=== PATIENT | female | born 1940 | race Caucasian/White ===

== ENCOUNTER 2016-05-25 09:58 | Inpatient (IN) | payer MEDICARE, BC ==
[2016-05-25] VITALS (17 sets, daily range): BP systolic 82–128; BP diastolic 64–88; PULSE 80–150; RESP 12–24; TEMP 97.6–98.2; O2SAT 94–100
[~2016-05-25] VITALS: Ht 165.1 cm; Wt 69.9 kg
[~2016-05-25 09:58] MED LIST: BLOOD PRESSURE MED PO; CHOL1CAP6 PO; ESTR.3 PO; HYCO5UDC PO; LEVO.1 PO; MIAC200S; OYST500T77 PO; PROM25SU8 PO; TAB-TAB PO; VITA400C70 PO; VITA500T10 PO; ZINCLOZ8 PO
[2016-05-25] MEDS ORDERED: SODIUM CHLOR 0.9% 1000 ML INJ 1,000 ML IV ONE ×3 (10:18→15:00)
[2016-05-25] MEDS ORDERED: SODIUM CHLOR 0.9% 1000 ML INJ 100 ML IV ONE (10:18)
--- NOTE | 2016-05-25 10:26 | PD ---
HPI Chief Complaint: GI Complaint Time Seen by Provider: 10:11 Travel History International Travel<30 days: No Contact w/Intl Traveler<30days: No Traveled to known affect area: No History of Present Illness HPI The patient is a 75-year-old female who presents to the emergency department for nausea, diarrhea, and generalized weakness. The patient states her symptoms started several days ago with a runny nose and congestion. The patient then developed mid thoracic back pain that was followed with nausea, diarrhea, and crampy abdominal pain. The patient has 3 episodes of loose stool earlier today, also complains of nausea without any vomiting. The patient complains of generalized weakness with orthostatic dizziness. The patient does feel general lethargy, states she was unable to measure her blood pressure this morning. The patient does have a history of hypertension, however, did not take her blood pressure medications this morning secondary to her symptoms. The patient did receive an influenza vaccination this year. The patient denies any dysuria, frequency, or urgency. His primary physician is Dr. Zuleika Belcher and her knockdown man is Dr. Oneill. [facility] Past Medical History Blood Disorders: No Cancer: No Cardiovascular Problems: No Chemotherapy: No Diminished Hearing: No Endocrine: Yes Genitourinary: No Immune Disorder: No Musculoskeletal: No Neurologic: No Psychiatric: No Respiratory: No Immunizations Current: Yes Radiation Therapy: No Thyroid Disease: Yes (HYPOTHYROID) Menopausal: Yes Past Surgical History Abdominal Surgery: Yes (gallbladder) Appendectomy: Yes Cholecystectomy: Yes Hysterectomy: Yes Other Surgery: Yes Social History Alcohol Use: Yes (1/YEAR) Tobacco Use: No Substance Use: No Allergies-Medications (Allergen,Severity, Reaction): Coded Allergies: No Known Allergies (Unverified , 05/25/16) Reported Meds & Prescriptions Reported Meds & Active Scripts Active Reported Vitamin E 400 Unit Tab 400 Units PO DAILY Ascorbic Acid 1,000 Mg Tab 1,000 Mg PO DAILY Vitamin D-3 (Cholecalciferol) 1,000 Unit Tab 1,000 Units PO DAILY Zinc (Zinc Gluconate) 50 Mg Tab 1 Tab PO DAILY Multivitamin Adults 50+ (Multiple Vitamins W/ Minerals) 1 Tab Tab 1 Tab PO DAILY Calcium 500 Mg Tab 1,000 Mg PO DAILY Diltiazem ER 24 HR (Diltiazem HCl) 120 Mg Caper 120 Mg PO DAILY Metoprolol Tartrate 100 Mg Tab 100 Mg PO DAILY Premarin (Estrogens Conjugated) 0.3 Mg Tab 0.3 Mg PO DAILY Diovan Hct (Valsartan-Hydrochlorothiazide) 80-12.5 Mg Tab 1 Tab PO DAILY Synthroid (Levothyroxine Sodium) 100 Mcg Tab 100 Mcg PO DAILY Aspirin 81 Mg Chew 81 Mg CHEW DAILY Review of Systems Except as stated in HPI: all other systems reviewed are Neg General / Constitutional: No: Fever HENT: Positive: Lightheadedness, Congestion Cardiovascular: Positive: Tachycardia Respiratory: Positive: Cough Gastrointestinal: Positive: Nausea, Diarrhea, Abdominal Pain, No: Vomiting Genitourinary: No: Dysuria Musculoskeletal: Positive: Weakness Neurologic: Positive: Dizziness Physical Exam Narrative GENERAL: Awake, alert, 75-year-old female appears her stated age. SKIN: Warm and dry. HEAD: Atraumatic. Normocephalic. EYES: Pupils equal and round. No scleral icterus. No injection or drainage. ENT: No nasal bleeding or discharge. Dry mucous membranes. NECK: Trachea midline. No JVD. CARDIOVASCULAR: Regular, tachycardic with a heart rate of 150. RESPIRATORY: No accessory muscle use. Clear to auscultation. Breath sounds equal bilaterally. GASTROINTESTINAL: Abdomen soft, mild bilateral lower quadrant tenderness. Back: No CVA tenderness. Mild tenderness of the parathoracic vertebral muscles. MUSCULOSKELETAL: No obvious deformities. No clubbing. No cyanosis. No edema. NEUROLOGICAL: Awake and alert. No obvious cranial nerve deficits. Motor grossly within normal limits. Normal speech. PSYCHIATRIC: Appropriate mood and affect; insight and judgment normal. Data Data Last Documented VS Vital Signs Date Time Temp Pulse Resp B/P Pulse Ox O2 Delivery O2 Flow Rate FiO2 05/25/16 12:03 123 17 99/82 95 Room Air 05/25/16 11:02 97.9 Orders Electrocardiogram (05/25/16 10:18) Complete Blood Count With Diff (05/25/16 10:18) Comprehensive Metabolic Panel (05/25/16 10:18) Lactic Acid Sepsis Protocol (05/25/16 10:18) Lipase (05/25/16 10:18) Ckmb (Isoenzyme) Profile (05/25/16 10:18) Troponin I (05/25/16 10:18) Urinalysis - C+S If Indicated (05/25/16 10:18) Influenzae A/B Antigen (05/25/16 10:18) Blood Culture (05/25/16 10:18) Chest, Single Ap (05/25/16 10:18) Blood Gas Venous (Vbg) (05/25/16 10:18) Blood Glucose (05/25/16 10:18) Ecg Monitoring (05/25/16 10:18) Iv Access Insert/Monitor (05/25/16 10:18) Oximetry (05/25/16 10:18) Oxygen Administration (05/25/16 10:18) Ct Abd/Pel W/O Iv Contrast (05/25/16 10:18) Sodium Chlor 0.9% 1000 Ml Inj (Ns 1000 M (05/25/16 10:18) Sodium Chlor 0.9% 1000 Ml Inj (Ns 1000 M (05/25/16 10:18) Sodium Chlor 0.9% 1000 Ml Inj (Ns 1000 M (05/25/16 10:18) Ondansetron Inj (Zofran Inj) (05/25/16 10:30) Electrocardiogram (05/25/16 ) Admit Order (Ed Use Only) (05/25/16 12:09) Labs Laboratory Tests Test 05/25/16 05/25/16 05/25/16 10:25 10:37 11:15 White Blood Count 7.3 TH/MM3 Red Blood Count 4.47 MIL/MM3 Hemoglobin 14.5 GM/DL Hematocrit 43.9 % Mean Corpuscular Volume 98.2 FL Mean Corpuscular Hemoglobin 32.4 PG Mean Corpuscular Hemoglobin 33.0 % Concent Red Cell Distribution Width 13.6 % Platelet Count 298 TH/MM3 Mean Platelet Volume 10.1 FL Neutrophils (%) (Auto) 61.5 % Lymphocytes (%) (Auto) 22.9 % Monocytes (%) (Auto) 14.1 % Eosinophils (%) (Auto) 0.8 % Basophils (%) (Auto) 0.7 % Neutrophils # (Auto) 4.4 TH/MM3 Lymphocytes # (Auto) 1.7 TH/MM3 Monocytes # (Auto) 1.0 TH/MM3 Eosinophils # (Auto) 0.1 TH/MM3 Basophils # (Auto) 0.1 TH/MM3 CBC Comment DIFF FINAL Differential Comment Sodium Level 143 MEQ/L Potassium Level 3.8 MEQ/L Chloride Level 106 MEQ/L Carbon Dioxide Level 25.6 MEQ/L Anion Gap 11 MEQ/L Blood Urea Nitrogen 13 MG/DL Creatinine 1.10 MG/DL Estimat Glomerular Filtration 48 ML/MIN Rate Random Glucose 120 MG/DL Calcium Level 8.9 MG/DL Total Bilirubin 0.7 MG/DL Aspartate Amino Transf 9 U/L (AST/SGOT) Alanine Aminotransferase 16 U/L (ALT/SGPT) Alkaline Phosphatase 74 U/L Total Creatine Kinase 33 U/L Troponin I LESS THAN 0.02 NG/ML Total Protein 6.8 GM/DL Albumin 3.2 GM/DL Lipase 127 U/L Blood Gas Puncture Site IV Blood Gas Patient Temperature 98.6 Venous Blood pH 7.40 Venous Blood Partial Pressure 42 mmHg CO2 Venous Blood Partial Pressure 32 mmHg O2 Venous Blood HCO3 26 mmol/L Venous Blood Oxygen Saturation 57 % Venous Blood Oxygen Content 11.2 Vol % Venous Blood Base Excess 1.4 mmol/L Oxygen Delivery Device ROOMAIR Blood Gas Inspired Oxygen 21 % Lactic Acid Level 1.3 mmol/L MDM Medical Decision Making Medical Screen Exam Complete: Yes Emergency Medical Condition: Yes Medical Record Reviewed: Yes Interpretation(s) EKG reveals accelerated junctional rhythm versus atrial flutter with 2-[address]-T wave changes. CT the abdomen and pelvis reveals diverticulosis without diverticulitis. Status post cholecystectomy. Right ovarian cyst measures 5 cm. Pelvic sonogram recommended. Laboratory Tests Test 05/25/16 05/25/16 05/25/16 10:25 10:37 11:15 White Blood Count 7.3 TH/MM3 Red Blood Count 4.47 MIL/MM3 Hemoglobin 14.5 GM/DL Hematocrit 43.9 % Mean Corpuscular Volume 98.2 FL Mean Corpuscular Hemoglobin 32.4 PG Mean Corpuscular Hemoglobin 33.0 % Concent Red Cell Distribution Width 13.6 % Platelet Count 298 TH/MM3 Mean Platelet Volume 10.1 FL Neutrophils (%) (Auto) 61.5 % Lymphocytes (%) (Auto) 22.9 % Monocytes (%) (Auto) 14.1 % Eosinophils (%) (Auto) 0.8 % Basophils (%) (Auto) 0.7 % Neutrophils # (Auto) 4.4 TH/MM3 Lymphocytes # (Auto) 1.7 TH/MM3 Monocytes # (Auto) 1.0 TH/MM3 Eosinophils # (Auto) 0.1 TH/MM3 Basophils # (Auto) 0.1 TH/MM3 CBC Comment DIFF FINAL Differential Comment Sodium Level 143 MEQ/L Potassium Level 3.8 MEQ/L Chloride Level 106 MEQ/L Carbon Dioxide Level 25.6 MEQ/L Anion Gap 11 MEQ/L Blood Urea Nitrogen 13 MG/DL Creatinine 1.10 MG/DL Estimat Glomerular Filtration 48 ML/MIN Rate Random Glucose 120 MG/DL Calcium Level 8.9 MG/DL Total Bilirubin 0.7 MG/DL Aspartate Amino Transf 9 U/L (AST/SGOT) Alanine Aminotransferase 16 U/L (ALT/SGPT) Alkaline Phosphatase 74 U/L Total Creatine Kinase 33 U/L Troponin I LESS THAN 0.02 NG/ML Total Protein 6.8 GM/DL Albumin 3.2 GM/DL Lipase 127 U/L Blood Gas Puncture Site IV Blood Gas Patient Temperature 98.6 Venous Blood pH 7.40 Venous Blood Partial Pressure 42 mmHg CO2 Venous Blood Partial Pressure 32 mmHg O2 Venous Blood HCO3 26 mmol/L Venous Blood Oxygen Saturation 57 % Venous Blood Oxygen Content 11.2 Vol % Venous Blood Base Excess 1.4 mmol/L Oxygen Delivery Device ROOMAIR Blood Gas Inspired Oxygen 21 % Lactic Acid Level 1.3 mmol/L EKG #2 reveals probable accelerated junctional rhythm with a rate of 121. Appears regular but no obvious P waves. Differential Diagnosis Differential diagnosis includes sepsis, dehydration, influenza, diverticulitis, colitis, gastroenteritis, electrolyte abnormality, atrial flutter, pneumonia. Narrative Course IV was established, labs are drawn and sent, and the patient was placed on cardiac telemetry monitoring and continuous pulse oximetry monitoring. Chest x- ray was ordered. CT of the abdomen and pelvis was ordered. The patient was administered IV fluids and Zofran. EKG was ordered and interpreted. Lactic acid blood culture were sent to lab. Lactic acid is normal, white count is normal, BUN is unremarkable, creatinine is mildly elevated. CT the abdomen and pelvis is negative for any obvious source of enteritis/colitis. Chest x-rays negative for pneumonia. The patient received 2 L of IV fluids, her heart rate came down to 121, blood pressure improved with a systolic in the high 90s. The patient's symptoms did improve, over, she was still mildly tachycardic and dehydrated. Therefore, patient be 23 hour observation for IV fluid rehydration and monitoring of tachycardia. Therefore, [facility] hour observation. Repeat EKG was performed which reveals accelerated junctional rhythm, appears regular with no obvious P waves. Physician Communication Physician Communication I discussed the patient with Dr. Watkins who agrees with 23 hour observation. Diagnosis Primary Impression: Dehydration Additional Impressions: Gastroenteritis Tachycardia Admitting Information Admitting Physician Requests: Observation Krishan Evans MD May 25, 2016 10:26
[2016-05-25] MEDS ORDERED: CHEL50TA PO (10:30)
[2016-05-25] MEDS ORDERED: ONDANSETRON HCL 4 MG/2 ML VIAL IV PUSH ONE (10:30)
[2016-05-25] MEDS ORDERED: LEVO.1 PO (10:30)
[2016-05-25] MEDS ORDERED: MULT1TAB78 PO (10:30)
[2016-05-25] MEDS ORDERED: VITA10003 PO (10:30)
[2016-05-25] MEDS ORDERED: ASPI81CH CHEW (10:30)
[2016-05-25] MEDS ORDERED: DILT120C7 PO (10:30)
[2016-05-25] MEDS ORDERED: DIOV80TA2 PO (10:30)
[2016-05-25] MEDS ORDERED: METO100T PO (10:30)
[2016-05-25] MEDS ORDERED: ESTR.3 PO (10:30)
[2016-05-25] MEDS ORDERED: CALC500T42 PO (10:30)
[2016-05-25] MEDS ORDERED: NATU400T PO (10:31)
[2016-05-25] MEDS ORDERED: ASCO10003 PO (10:31)
[2016-05-25 10:35] LABS: AUTOMATED NEUTROPHIL # 4.4 TH/MM3 (1.8-7.7); BASOPHIL # 0.1 TH/MM3 (0-0.2); BASOPHIL % 0.7 % (0.0-2.0); EOSINOPHIL # 0.1 TH/MM3 (0-0.4); EOSINOPHIL % 0.8 % (0.0-4.0); HEMATOCRIT 43.9 % (35.0-46.0); HEMO FLAGS DIFF FINAL; LYMPH % 22.9 % (9.0-44.0); LYMPHOCYTE # 1.7 TH/MM3 (1.0-4.8); MEAN CELL VOLUME 98.2 FL (80.0-100.0); MEAN CORPUSCULAR HEMOGLOBIN 32.4 PG (27.0-34.0); MONO % 14.1 % (0.0-8.0); NEUT % 61.5 % (16.0-70.0); PLATELET COUNT 298 TH/MM3 (150-450); RED BLOOD COUNT 4.47 MIL/MM3 (4.00-5.30); RED CELL DISTRIBUTION WIDTH 13.6 % (11.6-17.2); WHITE BLOOD COUNT 7.3 TH/MM3 (4.0-11.0)
[2016-05-25 10:41] LABS: BLOOD GAS VENOUS BASE EXCESS 1.4 mmol/L (-2-2); BLOOD GAS VENOUS HCO3 26 mmol/L (22-26); BLOOD GAS VENOUS O2 CONTENT 11.2 Vol % (9.0-17.0); BLOOD GAS VENOUS O2 HGB SAT 57 % (70-76); BLOOD GAS VENOUS PCO2 42 mmHg (44-48); BLOOD GAS VENOUS PO2 32 mmHg (35-40); CRITICAL VALUE NO; DRAW SITE IV; FIO2 21 %; OXYGEN DEVICE ROOMAIR; STAT YES; TEMP CORR TO 98.6
[2016-05-25 10:45] LABS: CHLORIDE 106 MEQ/L (98-107); POTASSIUM 3.8 MEQ/L (3.5-5.1); SODIUM (NA) 143 MEQ/L (136-145)
[2016-05-25 10:52] LABS: ANION GAP 11 MEQ/L (5-15); BICARBONATE 25.6 MEQ/L (21.0-32.0); BLOOD UREA NITROGEN 13 MG/DL (7-18)
[2016-05-25 10:55] LABS: ALT (GPT) 16 U/L (10-53); AST (GOT) 9 U/L (15-37); GLOMERULAR FILTRATION RATE 48 ML/MIN (>89)
[2016-05-25 10:56] LABS: TOTAL BILIRUBIN ADULT 0.7 MG/DL (0.2-1.0)
[2016-05-25 10:58] LABS: ALKALINE PHOSPHATASE 74 U/L (45-117)
--- NOTE | 2016-05-25 10:59 | RADHPO ---
EXAM DATE/TIME: 05/25/2016 10:47 [facility] COMPARISON: No previous studies available for comparison. INDICATIONS : Cough, nausea. MEDICAL HISTORY : None. SURGICAL HISTORY : None. ENCOUNTER: Initial ACUITY: 1 day PAIN SCORE: 0/10 LOCATION: Bilateral chest FINDINGS: A single view of the chest demonstrates the lungs to be symmetrically aerated without evidence of mas s, infiltrate or effusion. The cardiomediastinal contours are unremarkable. Osseous structures are intact. CONCLUSION: Normal examination. aHrshal Quijano MD on May 25, 2016 at 10:57 Board Certified Radiologist. This report was verified electronically.
[2016-05-25 11:02] LABS: CREATINE KINASE 33 U/L (26-192)
--- NOTE | 2016-05-25 11:48 | RADHPO ---
EXAM DATE/TIME: 05/25/2016 11:18 [facility] COMPARISON: No previous studies available for comparison. INDICATIONS : Non-specific abdominal and back pain with generalized weakness. ORAL CONTRAST: No oral contrast ingested. RADIATION DOSE: 9.21 CTDIvol (mGy) MEDICAL HISTORY : None SURGICAL HISTORY : Cholecystectomy. Hysterectomy. ENCOUNTER: Initial ACUITY: 1 day PAIN SCALE: 6/10 LOCATION: abdomen/pelvis TECHNIQUE: Volumetric scanning of the abdomen and pelvis was performed. Using automated exposure control and ad justment of the mA and/or kV according to patient size, radiation dose was kept as low as reasonably achievable to obtain optimal diagnostic quality images. FINDINGS: LOWER LUNGS: The visualized lower lungs are clear. LIVER: Homogeneous density without lesion. There is no dilation of the biliary tree. No calcified gallston es. SPLEEN: Normal size without lesion. PANCREAS: Within normal limits. KIDNEYS: Normal in size and shape. There is no mass, stone, or hydronephrosis. ADRENAL GLANDS: Within normal limits. VASCULAR: There is no aortic aneurysm. BOWEL/MESENTERY: There is diverticulosis throughout the colon. Areas of nondistention are seen within the ascending an d proximal transverse colon. No inflammatory changes. There is no free intraperitoneal air or fluid. ABDOMINAL WALL: Within normal limits. RETROPERITONEUM: There is no lymphadenopathy. BLADDER: No wall thickening or mass. REPRODUCTIVE: Within normal limits. INGUINAL: There is no lymphadenopathy or hernia. MUSCULOSKELETAL: Within normal limits for patient age. CONCLUSION: 1. Diverticulosis without diverticulitis. 2. Status post cholecystectomy. 3. Right ovarian cyst measures 5 cm. Pelvic sonogram recommended. Ty Bush MD on May 25, 2016 at 11:41 Board Certified Radiologist. This report was verified electronically.
[2016-05-25 12:29] LABS: BLOOD, URINE TRACE (NEG); GLUCOSE,URINE NEG (NEG); KETONE, URINE NEG (NEG); NITRITE,URINE NEG (NEG); PH, URINE 6.5 (5.0-8.5)
[2016-05-25 12:33] LABS: METHOD OF COLLECTION CLEAN CATCH; URINE COLOR YELLOW (YELLW/STRAW)
[2016-05-25 12:34] LABS: COMMENT (UR) CULT NOT INDICATED; CULTURE IF INDICATED CULT NOT INDICATED; RBC, URINE 0-3 /hpf (0-3); SQUAMOUS EPITHELIAL CELL URINE 0-5 /hpf (0-5)
[2016-05-25] MEDS: SODIUM CHLOR 0.9% 1000 ML INJ 1,000 ML IV SCH ×2 (13:57→15:29)
[2016-05-25] MEDS ORDERED: SODIUM CHLORIDE 0.9% FLUSH 5 ML FLUSH FLUSH PRN (14:00)
--- NOTE | 2016-05-25 15:03 | HHI.HP ---
[facility] Primary Care Physician Zuleika Beal MD Admission Diagnosis dehydration, tachycardia, hypotension Diagnoses: Chief Complaint: Nausea and loose stools Travel History International Travel<30 Days: No Contact w/Intl Traveler <30 Da: No Traveled to Known Affected Are: No History of Present Illness Patient is a 75-year-old female is normally very healthy. She does normally have hypertension however she felt lightheaded and dizzy and had some nausea and vomiting. She took her blood pressure at home noted that her blood pressure was unreadable by her device. She did check her machine and her and his blood pressure was normal. Patient felt some palpitations also he came to the hospital. Her blood pressure on arrival was 82/64 and patient was lightheaded and dizzy. Her heart rate was in the 130s. Mom as she takes diltiazem and metoprolol as well as Diovan for blood pressure but she did not take these as she usually takes with breakfast and she has not felt like eating. She had loose watery stools for several episodes. There is no bleeding noted. She was nauseated and had some watery vomit without bleeding. Patient did come to the emergency room for further evaluation. Here in addition to hypotension and tachycardia patient appears to have acute kidney injury appears very dehydrated despite 2 L of normal saline in the emergency room. She will need to be admitted to the hospital for further evaluation and treatment of dehydration and likely gastroenteritis Review of Systems Constitutional: DENIES: Diaphoretic episodes, Fatigue, Fever, Weight gain, Weight loss, Chills, Dizziness, Change in appetite, Night Sweats Endocrine: DENIES: Abnorml menstrual pattern, Heat/cold intolerance, Polydipsia , Polyuria, Polyphagia Eyes: DENIES: Blurred vision, Diplopia, Eye inflammation, Eye pain, Vision loss , Photosensitivity, Double Vision Ears, nose, mouth, throat: DENIES: Tinnitus, Hearing loss, Vertigo, Nasal discharge, Oral lesions, Throat pain, Hoarseness, Ear Pain, Running Nose, Epistaxis, Sinus Pain, Toothache, Odynophagia Respiratory: COMPLAINS OF: Cough, Sputum production, DENIES: Apneas, Snoring, Wheezing, Hemoptysis, Shortness of breath Cardiovascular: DENIES: Chest pain, Palpitations, Syncope, Dyspnea on Exertion , PND, Lower Extremity Edema, Orthopnea, Claudication Gastrointestinal: COMPLAINS OF: Diarrhea, Nausea, Vomiting, DENIES: Abdominal pain, Black stools, Bloody stools, Constipation, Difficulty Swallowing, Anorexia Genitourinary: DENIES: Abnormal vaginal bleeding, Dysmenorrhea, Dyspareunia, Sexual dysfunction, Urinary frequency, Urinary incontinence, Urgency, Hematuria , Dysuria, Nocturia, Vaginal discharge Musculoskeletal: DENIES: Joint pain, Muscle aches, Stiffness, Joint Swelling, Back pain, Neck pain Integumentary: DENIES: Abnormal pigmentation, Pruritus, Rash, Nail changes, Breast masses, Breast skin changes, Nipple discharge Immunologic/allergic: DENIES: Eczema, Urticaria Neurologic: DENIES: Abnormal gait, Headache, Localized weakness, Paresthesias, Seizures, Speech Problems, Tremor, Poor Balance Psychiatric: DENIES: Anxiety, Confusion, Mood changes, Depression, Hallucinations, Agitation, Suicidal Ideation, Homicidal Ideation, Delusions Past Family Social History Past Medical History htn thyroid Past Surgical History stephany, gb Reported Medications Nothing new, reviewed and the medical record Allergies: Coded Allergies: No Known Allergies (Unverified , 05/25/16) Active Ordered Medications Reviewed in t he medical record Family History Other data 89 natural causes, mother at 67 from the abdominal aneurysm Social History No tobacco or alcohol dependency, no recent travel or sick contacts, lives with her family Physical Exam Vital Signs Vital Signs Date Time Temp Pulse Resp B/P Pulse Ox O2 Delivery O2 Flow Rate FiO2 05/25/16 13:59 128 17 96/77 94 Room Air 05/25/16 12:59 126 14 93/72 94 Room Air 05/25/16 12:03 123 17 99/82 95 Room Air 05/25/16 11:35 128 17 95/75 96 Room Air 05/25/16 11:02 129 17 91/74 100 Room Air 05/25/16 11:02 97.9 129 17 91/74 100 Room Air 05/25/16 10:38 100 Room Air 05/25/16 10:35 137 17 92/73 100 Room Air 05/25/16 10:30 100 Room Air 05/25/16 10:06 97.6 150 16 82/64 100 Physical Exam GENERAL: This is a well-nourished, well-developed patient, in no apparent distress. SKIN: No rashes, ecchymoses or lesions. Cool and dry. HEAD: Atraumatic. Normocephalic. No temporal or scalp tenderness. EYES: Pupils equal round and reactive. Extraocular motions intact. No scleral icterus. No injection or drainage. ENT: Nose without bleeding, purulent drainage or septal hematoma. Throat without erythema, tonsillar hypertrophy or exudate. Uvula midline. Airway patent. NECK: Trachea midline. No JVD or lymphadenopathy. Supple, nontender, no meningeal signs. CARDIOVASCULAR: Regular rate and rhythm without murmurs, gallops, or rubs. RESPIRATORY: Clear to auscultation. Breath sounds equal bilaterally. No wheezes , rales, or rhonchi. GASTROINTESTINAL: Abdomen soft, non-tender, nondistended. No hepato-splenomegaly , or palpable masses. No guarding. MUSCULOSKELETAL: Extremities without clubbing, cyanosis, or edema. No joint tenderness, effusion, or edema noted. No calf tenderness. Negative Homans sign bilaterally. NEUROLOGICAL: Awake and alert. Cranial nerves II through XII intact. Motor and sensory grossly within normal limits. Five out of 5 muscle strength in all muscle groups. Normal speech. Laboratory Laboratory Tests Test 05/25/16 05/25/16 05/25/16 05/25/16 10:25 10:37 11:15 12:15 White Blood Count 7.3 Red Blood Count 4.47 Hemoglobin 14.5 Hematocrit 43.9 Mean Corpuscular Volume 98.2 Mean Corpuscular Hemoglobin 32.4 Mean Corpuscular Hemoglobin 33.0 Concent Red Cell Distribution Width 13.6 Platelet Count 298 Mean Platelet Volume 10.1 Neutrophils (%) (Auto) 61.5 Lymphocytes (%) (Auto) 22.9 Monocytes (%) (Auto) 14.1 Eosinophils (%) (Auto) 0.8 Basophils (%) (Auto) 0.7 Neutrophils # (Auto) 4.4 Lymphocytes # (Auto) 1.7 Monocytes # (Auto) 1.0 Eosinophils # (Auto) 0.1 Basophils # (Auto) 0.1 CBC Comment DIFF FINAL Differential Comment Sodium Level 143 Potassium Level 3.8 Chloride Level 106 Carbon Dioxide Level 25.6 Anion Gap 11 Blood Urea Nitrogen 13 Creatinine 1.10 Estimat Glomerular Filtration 48 Rate Random Glucose 120 Calcium Level 8.9 Total Bilirubin 0.7 Aspartate Amino Transf 9 (AST/SGOT) Alanine Aminotransferase 16 (ALT/SGPT) Alkaline Phosphatase 74 Total Creatine Kinase 33 Troponin I LESS THAN 0.02 Total Protein 6.8 Albumin 3.2 Lipase 127 Blood Gas Puncture Site IV Blood Gas Patient Temperature 98.6 Venous Blood pH 7.40 Venous Blood Partial Pressure 42 CO2 Venous Blood Partial Pressure 32 O2 Venous Blood HCO3 26 Venous Blood Oxygen Saturation 57 Venous Blood Oxygen Content 11.2 Venous Blood Base Excess 1.4 Oxygen Delivery Device ROOMAIR Blood Gas Inspired Oxygen 21 Lactic Acid Level 1.3 Urine Collection Type CLEAN CATCH Urine Color YELLOW Urine Turbidity CLEAR Urine pH 6.5 Urine Specific [place] 1.015 Urine Protein NEG Urine Glucose (UA) NEG Urine Ketones NEG Urine Occult Blood TRACE Urine Nitrite NEG Urine Bilirubin NEG Urine Leukocyte Esterase NEG Urine RBC 0-3 Urine Squamous Epithelial 0-5 Cells Microscopic Urinalysis Comment CULT NOT INDICATED Date/Time Procedure Status Source Growth 05/25/16 11:15 Aerobic Blood Culture Received Blood Peripheral Pending 05/25/16 11:15 Anaerobic Blood Culture Received Blood Peripheral Pending 05/25/16 10:45 Influenza Types A,B Antigen (SEAN) - Final Complete Nasal Aspirate NEGATIVE FOR FLU A AND B ANTIGEN.... Result Diagram: 05/25/16 1025 05/25/16 1025 Imaging Last Impressions Chest X-Ray 05/25/16 1018 Signed Impressions: Service Date/Time: Wednesday, May 25, 2016 10:47 - CONCLUSION: Normal examination. Harshal Quijano MD Abdomen/Pelvis CT 05/25/16 1018 Signed Impressions: Service Date/Time: Wednesday, May 25, 2016 11:18 - CONCLUSION: 1. Diverticulosis without diverticulitis. 2. Status post cholecystectomy. 3. Right ovarian cyst measures 5 cm. Pelvic sonogram recommended. Ty Bush MD Assessment and Plan Problem List: (1) Dehydration ICD Code: E86.0 Status: Acute Plan: Need IV fluids. Patient did not take her blood pressure pills today. She normally has high blood pressure. Now requiring at least 3 L of fluid. Follow urine output (2) Gastroenteritis ICD Code: K52.9 Status: Acute Plan: may be viral syndrome (3) Tachycardia ICD Code: R00.0 Status: Acute Plan: Likely secondary to hypotension, his refractory at this point also despite hydration. Continue with IV fluids, will hold the patient's metoprolol , check TSH (4) BRANDAN (acute kidney injury) ICD Code: N17.9 Status: Acute Plan: Likely secondary to prerenal syndrome. Continue IV hydration Follow trend The evidence of UTI If no improvement will continue with inpatient workup (5) Hypotension ICD Code: I95.9 Status: Acute Plan: Quite severe and refractory to hypotension. Patient will need to be admitted to the progressive care unit overnight and we'll follow her blood pressure May need pressors, will follow to keep mean arterial pressures greater than 60 Code Status Full code Discussed Condition With Discussed with patient, Terri MARRUFO and with MIGUEL Santacruz Physician Certification 2 Midnight Certification Type: Admission for Inpatient Services Order for Inpatient Services The services are ordered in accordance with Medicare regulations or non- Medicare payer requirements, as applicable. In the case of services not specified as inpatient-only, they are appropriately provided as inpatient services in accordance with the 2-midnight benchmark. Estimated LOS (days): 3 3 days is the estimated time the patient will need to remain in the hospital, assuming treatment plan goals are met and no additional complications. Post-Hospital Plan: Home Malou Watkins MD May 25, 2016 15:03
[2016-05-25] MEDS ORDERED: CHLORHEXIDINE GLUCONATE 2 % 1 PACK (2 CLOTHS)(extra cloths) TOP PRN (19:00)
[2016-05-25] MEDS: SODIUM CHLORIDE 0.9% FLUSH 5 ML FLUSH FLUSH SCH (21:00)
[2016-05-26] VITALS (39 sets, daily range): BP systolic 101–143; BP diastolic 69–90; PULSE 72–144; RESP 0–31; TEMP 97.6–98.7; O2SAT 94–98
[2016-05-26] MEDS: SODIUM CHLOR 0.9% 1000 ML INJ 1,000 ML IV SCH (00:30)
[2016-05-26] MEDS ORDERED: CHLORHEXIDINE GLUCONATE 2 % 1 PACK (2 CLOTHS)(taper/protocol) TOP SCH (04:00)
[2016-05-26 05:00] LABS: AUTOMATED NEUTROPHIL # 3.3 TH/MM3 (1.8-7.7); BASOPHIL % 0.6 % (0.0-2.0); EOSINOPHIL # 0.1 TH/MM3 (0-0.4); EOSINOPHIL % 1.8 % (0.0-4.0); HEMATOCRIT 35.2 % (35.0-46.0); HEMO FLAGS DIFF FINAL; LYMPH % 34.4 % (9.0-44.0); LYMPHOCYTE # 2.1 TH/MM3 (1.0-4.8); MEAN CELL VOLUME 97.7 FL (80.0-100.0); MEAN CORPUSCULAR HEMOGLOBIN 31.8 PG (27.0-34.0); MEAN CORPUSCULAR HGB CONC 32.5 % (32.0-36.0); MONO % 11.3 % (0.0-8.0); NEUT % 51.9 % (16.0-70.0); PLATELET COUNT 220 TH/MM3 (150-450); RED CELL DISTRIBUTION WIDTH 12.8 % (11.6-17.2); WHITE BLOOD COUNT 6.2 TH/MM3 (4.0-11.0)
[2016-05-26 05:29] LABS: POTASSIUM 3.4 MEQ/L (3.5-5.1)
[2016-05-26 05:50] LABS: BICARBONATE 26.1 MEQ/L (21.0-32.0)
[2016-05-26 06:09] LABS: CALCIUM-PROTEIN CORRECTED 8.1 MG/DL (8.5-10.1)
[2016-05-26] MEDS: SODIUM CHLORIDE 0.9% FLUSH 5 ML FLUSH FLUSH SCH ×2 (07:09→22:58)
--- NOTE | 2016-05-26 07:54 | RADHPO ---
EXAM DATE/TIME: 05/26/2016 07:41 [facility] COMPARISON: No previous studies available for comparison. INDICATIONS : Short of breath, chest pressure. MEDICAL HISTORY : None. SURGICAL HISTORY : None. ENCOUNTER: Subsequent ACUITY: 2 days PAIN SCORE: 2/10 LOCATION: Bilateral chest FINDINGS: A single view of the chest demonstrates minimal left basilar density. Right lung clear. Heart normal in size. Osseous structures are intact. CONCLUSION: 1. Minimal left basilar density, likely atelectasis although infiltrate cannot be excluded. Ty Bush MD on May 26, 2016 at 7:52 Board Certified Radiologist. This report was verified electronically.
[2016-05-26 08:00] LABS: CREATINE KINASE 36 U/L (26-192)
[2016-05-26] MEDS ORDERED: METOPROLOL TARTRATE 50 MG TAB PO ONE (08:00)
[2016-05-26] MEDS ORDERED: POTASSIUM CHLORIDE 10 MEQ CONTROLLED RELEASE TAB PO ONE (08:00)
--- NOTE | 2016-05-26 09:30 | EKG ---
Date Performed: 05/26/2016 Time Performed: 07:31:12 PTAGE: 75 years EKG: probable atrial flutter Poor R wave progression - probable normal variant Extensive ST-T ch anges suggest myocardial injury/ischemia Abnormal ECG PREVIOUS TRACING : 05/25/2016 12.06 DOCTOR: Harshal Agudelo Interpretating Date/Time 05/26/2016 09:29:15
[2016-05-26] MEDS ORDERED: PNEUMOCOCCAL POLYVALENT INJ 25 MCG/0.5 ML SYR IM ONE (10:00)
--- NOTE | 2016-05-26 11:35 | EKG ---
Date Performed: 05/25/2016 Time Performed: 12:06:50 PTAGE: 75 years EKG: probable atrial fibrillation Rightward axis Inferior/lateral ST-T changes are nonspecific A bnormal ECG PREVIOUS TRACING : 05/25/2016 10.32 DOCTOR: Harshal Agudelo Interpretating Date/Time 05/26/2016 11:33:41
--- NOTE | 2016-05-26 11:38 | EKG ---
Date Performed: 05/25/2016 Time Performed: 10:32:52 PTAGE: 75 years EKG: atrial fibrillation Inferior/lateral ST-T changes are nonspecific Abnormal ECG PREVIOUS TRACING : 07/05/2008 13.35 DOCTOR: Harshal Agudelo Interpretating Date/Time 05/26/2016 11:37:37
[2016-05-26] MEDS ORDERED: SODIUM CHLOR 0.9% 1000 ML INJ 1,000 ML IV ONE ×2 (12:30→12:45)
--- NOTE | 2016-05-26 12:52 | HHI.PR ---
Subjective Remarks Patient seen and evaluated in follow-up for hypotension and tachycardia. Blood pressure appears to have stabilized however patient is now tachycardic again with increased diarrhea. No fevers, no chills. Patient reports a previous history of C. difficile in the past after antibiotics as an outpatient. Care plan discussed with CASH CHECKER, patient and spouse Objective Vitals Vital Signs Date Time Temp Pulse Resp B/P Pulse Ox O2 Delivery O2 Flow Rate FiO2 05/26/16 12:00 98.0 130 17 105/86 98 05/26/16 12:00 135 05/26/16 11:45 132 22 98 05/26/16 11:30 132 14 97 05/26/16 11:15 132 20 97 05/26/16 11:00 134 16 111/80 97 05/26/16 10:45 134 20 96 05/26/16 10:30 132 17 97 05/26/16 10:15 132 14 97 05/26/16 10:00 133 05/26/16 10:00 132 29 101/85 95 05/26/16 09:30 130 17 97 05/26/16 09:15 130 15 97 05/26/16 09:00 128 31 111/82 95 05/26/16 08:00 97.6 132 16 111/82 95 05/26/16 08:00 131 05/26/16 07:00 131 05/26/16 06:00 72 05/26/16 04:00 98.3 72 16 127/69 94 05/26/16 04:00 72 05/26/16 02:00 76 05/26/16 00:00 82 05/26/16 00:00 98.0 80 16 115/71 05/25/16 22:00 82 05/25/16 20:20 83 05/25/16 20:11 98.2 80 12 118/73 94 05/25/16 20:00 88 05/25/16 18:00 83 05/25/16 16:30 98.1 82 24 95 05/25/16 16:15 128/85 05/25/16 15:59 84 14 119/78 96 Room Air 05/25/16 15:28 17 98 Room Air 05/25/16 15:07 130 17 109/88 95 Room Air 05/25/16 13:59 128 17 96/77 94 Room Air 05/25/16 12:59 126 14 93/72 94 Room Air I/O 05/25/16 05/25/16 05/25/16 05/26/16 05/26/16 05/26/16 07:00 15:00 23:00 07:00 15:00 23:00 Intake Total 2100 ml 1080 ml 800 ml Output Total 200 ml 400 ml Balance 1900 ml 1080 ml 400 ml Intake Oral 480 ml 100 ml IV Total 2100 ml 600 ml 700 ml Output Urine Total 200 ml 400 ml # Voids 1 2 1 # Bowel Movements 1 Result Diagram: 05/26/160 05/26/160 A/P Problem List: (1) Dehydration ICD Code: E86.0 Status: Acute Plan: Needs IV fluids. urine output appropriate Continue aggressive hydration (2) Gastroenteritis ICD Code: K52.9 Status: Acute Plan: may be viral syndrome versus bacterial Tachycardia, Hypotension stool studies pending added. Empiric Flagyl, C. difficile pending (3) Tachycardia ICD Code: R00.0 Status: Acute Plan: Initially improved after aggressive hydration, now recurrent after diarrhea episodes. We'll continue with aggressive hydration. Follow mean arterial pressures to keep greater than 60 (4) BRANDAN (acute kidney injury) ICD Code: N17.9 Status: Acute Plan: Likely secondary to prerenal syndrome. Continue IV hydration Improved after IV hydration (5) Hypotension ICD Code: I95.9 Status: Acute Plan: Improved somewhat after IV fluids. Blood pressure medicines resumed at lower doses to avoid recurrence of hypotension (6) Hypokalemia ICD Code: E87.6 Status: Acute Plan: replace Malou Kohli MD May 26, 2016 12:52
[2016-05-26] MEDS: metroNIDAZOLE 500 MG TAB PO SCH ×3 (13:48→22:58)
[2016-05-26 18:31] LABS: C. DIFF EPI 027 PRESUMPTIVE NEGATIVE (NEGATIVE); C. DIFF TOXIN PCR NEGATIVE (NEGATIVE)
[2016-05-27] VITALS (9 sets, daily range): BP systolic 145–163; BP diastolic 81–94; PULSE 64–78; RESP 14–46; TEMP 97.7–97.8; O2SAT 94–95
[2016-05-27] MEDS: metroNIDAZOLE 500 MG TAB PO SCH (06:37)
--- NOTE | 2016-05-27 08:39 | HHI.PR ---
Subjective Remarks Patient seen and examined today with Dr. Connor. Patient states that she is doing much better. Patient states that she wants to go home. Patient blood pressure, heart rate are much improved today. Objective Vitals Vital Signs Date Time Temp Pulse Resp B/P Pulse Ox O2 Delivery O2 Flow Rate FiO2 05/27/16 08:00 97.8 68 33 163/91 95 05/27/16 08:00 70 05/27/16 06:02 70 05/27/16 04:00 68 05/27/16 04:00 68 14 94 05/27/16 03:02 97.7 72 21 151/81 95 05/27/16 02:41 76 05/27/16 00:28 72 14 94 05/27/16 00:00 70 05/26/16 23:01 98.1 76 21 143/81 94 05/26/16 22:00 74 05/26/16 20:00 78 05/26/16 20:00 98.1 78 22 05/26/16 19:22 82 25 141/90 95 05/26/16 19:00 80 17 94 05/26/16 18:00 86 05/26/16 16:49 98.7 82 20 132/81 05/26/16 16:45 80 21 05/26/16 16:30 82 21 05/26/16 16:15 84 22 05/26/16 16:00 89 05/26/16 16:00 82 20 05/26/16 15:45 82 19 05/26/16 15:30 82 19 05/26/16 15:15 84 23 05/26/16 15:00 84 0 05/26/16 14:30 144 19 05/26/16 14:15 140 20 05/26/16 14:00 120 05/26/16 14:00 140 29 128/90 05/26/16 13:45 142 23 05/26/16 13:15 144 23 05/26/16 13:00 138 17 109/90 05/26/16 12:00 98.0 130 17 105/86 98 05/26/16 12:00 135 05/26/16 11:45 132 22 98 05/26/16 11:30 132 14 97 05/26/16 11:15 132 20 97 05/26/16 11:00 134 16 111/80 97 05/26/16 10:45 134 20 96 05/26/16 10:30 132 17 97 05/26/16 10:15 132 14 97 05/26/16 10:00 133 05/26/16 10:00 132 29 101/85 95 05/26/16 09:30 130 17 97 05/26/16 09:15 130 15 97 05/26/16 09:00 128 31 111/82 95 I/O 05/26/16 05/26/16 05/26/16 05/27/16 05/27/16 05/27/16 07:00 15:00 23:00 07:00 15:00 23:00 Intake Total 800 ml 3360 ml 1200 ml 420 ml Output Total 400 ml 1200 ml 1100 ml Balance 400 ml 3360 ml 0 ml -680 ml Intake Oral 100 ml 550 ml 800 ml 420 ml IV Total 700 ml 2810 ml 400 ml Output Urine Total 400 ml 1200 ml 1100 ml # Voids 1 4 2 # Bowel Movements 2 0 Result Diagram: 05/26/1643905/26/16 0440 Objective Remarks GENERAL: Well-developed, well-nourished, in no acute distress. alert and orientated HEENT: Head is normocephalic without any lesions or masses noted. Facial features are symmetric. Eyes: Extraocular muscles are intact. Conjunctivae were clear. NECK: Supple without any masses. Trachea midline no deviation. No JVD, CARDIAC: Regular rhythm, regular rate. S1/S2 are heard. No murmurs gallops or rubs. LUNGS: Clear to auscultation bilaterally. No wheeze, rhonchi or rales. No use of accessory muscles on inspiration or expiration. ABDOMEN: Soft, nontender. Nondistended. Bowel sounds heard in all 4 quadrants. No organomegaly or masses. Negative rebound, negative guarding EXTREMITIES: No edema, pulses are equal bilaterally. No cyanosis or clubbing NEUROLOGY: Mood and affect appear appropriate. Cranial nerves II through XII grossly intact. Moving all extremities, speech is clear Urinary Catheter: No Vascular Central Line Catheter: No A/P Assessment and Plan Gastroenteritis with associated nausea, vomiting, dehydration, resolved Patient status post at least 4 L of fluid replacement Patient tolerating diet at this time C. difficile culture is negative Patient continued on Flagyl Sinus tachycardia, resolved Secondary to above Resume patient's home medications Cardizem and metoprolol Hypotension, resolved Secondary to presenting symptoms Home medications continued Acute renal failure, resolved Status post IV fluids Continue to avoid nephrotoxic medication Hypokalemia, Replaced Hypothyroidism TSH 2.54 Replacement therapy has been continued DVT prevention Low risk, early ambulation Written by Cooper Rodriguez PA-C, acting as scribe for Dr. Connor on 05/27/16 at 1120. The documentation accurately reflects the work and decisions performed face-to- face by Dr. Connor on 05/27/16 at 1120. Discharge Planning Discharge home in stable condition activity: Ad madi. Diet: Healthy heart diet Medications per medication reconciliation Follow-up primary medical doctor and environmental remediation engineer in a week Cooper Rodriguez May 27, 2016 08:39
--- NOTE | 2016-05-27 08:41 | HHI.DCPOC ---
Discharge Care Plan Diagnosis: (1) Gastroenteritis (2) Dehydration (3) Tachycardia (4) Hypotension (5) BRANDAN (acute kidney injury) Goals to Promote Your Health * To prevent worsening of your condition and complications * To maintain your health at the optimal level Directions to Meet Your Goals Take your medications as prescribed Follow your dietary instruction Follow activity as directed Keep your appointments as scheduled Take your immunizations and boosters as scheduled If your symptoms worsen call your PCP, if no PCP go to Urgent Care Center or Emergency Room Smoking is Dangerous to Your Health. Avoid second hand smoke Call the 24-hour hour crisis hotline for domestic abuse at Cooper Rodriguez May 27, 2016 08:40
[2016-05-27] MEDS ORDERED: ASPIRIN 81 MG CHEW TAB CHEW SCH (09:00)
[2016-05-27] MEDS ORDERED: DILTIAZEM-CD 120 MG CAP ER PO SCH (09:00)
[2016-05-27] MEDS ORDERED: LEVOTHYROXINE SODIUM 100 MCG TAB PO SCH (09:00)
[2016-05-27] MEDS ORDERED: METOPROLOL TARTRATE 100 MG TAB PO SCH (09:00)
[2016-05-27] MEDS: SODIUM CHLORIDE 0.9% FLUSH 5 ML FLUSH FLUSH SCH (09:50)
== END 2016-05-27 12:35 | disposition home or self-care (01) | DRG 641 ==
LOC: PHED 09:58 → PHEDA 12:10 → INTOOBSV 12:10 → OBSVTOIN 14:51 → PHICU 16:16
PROVIDERS: ADMIT Family Medicine; ATTEND Family Medicine
DX: E86.0 Dehydration (principal); K52.9 Noninfective gastroenteritis and colitis, unspecified; N17.9 Acute kidney failure, unspecified; I95.9 Hypotension, unspecified; N39.0 Urinary tract infection, site not specified; E87.6 Hypokalemia; R00.0 Tachycardia, unspecified; E03.9 Hypothyroidism, unspecified; I10 Essential (primary) hypertension; K57.90 Diverticulosis of intestine, part unspecified, without perforation or abscess without bleeding; N83.209 Unspecified ovarian cyst, unspecified side
CPT/HCPCS: 71010; 74176; 80048; 80053; 81001; 82550; 82805; 83605; 83690; 83735; 84155; 84443; 84484; 85025; 87040; 87205; 87329; 87493; 87506; 87641; 87804; 90471; 90732; 93005; 96361; 96374; G0009; J2405; J7030

== ENCOUNTER 2017-06-27 10:03 | Emergency (ER) | payer MEDICARE, BC ==
[~2017-06-27] VITALS: Ht 165.1 cm; Wt 70.0 kg
[~2017-06-27 10:03] MED LIST changes: +ASCO10003 PO; +ASPI-516 CHEW; -BLOOD PRESSURE MED PO; +CALC500T42 PO; +CHEL50TA PO; -CHOL1CAP6 PO; +DILT120C7 PO; -HYCO5UDC PO; +METO100T PO; -MIAC200S; +MULT1TAB78 PO; +NATU400T PO; -OYST500T77 PO; -PROM25SU8 PO; -TAB-TAB PO; +VITA10003 PO; -VITA400C70 PO; -VITA500T10 PO; -ZINCLOZ8 PO
[2017-06-27 10:05] VITALS: BP 114/70; PULSE 144; RESP 24; TEMP 97.4; O2SAT 98
[2017-06-27] MEDS ORDERED: ADENOSINE IV SOLN 3 MG/ML 2 ML VIAL ONE (10:23)
[2017-06-27 10:30] VITALS: BP 107/68; PULSE 87; RESP 18; O2SAT 97
[2017-06-27] MEDS ORDERED: ADENOSINE IV SOLN 3 MG/ML 2 ML VIAL IV PUSH ONE (10:30)
[2017-06-27] MEDS ORDERED: SODIUM CHLORID 0.9% 500 ML INJ 500 ML IV ONE (10:30)
[2017-06-27] MEDS ORDERED: SODIUM CHLORIDE 0.9% FLUSH 10 ML FLUSH IVF PRN (10:30)
--- NOTE | 2017-06-27 10:31 | PD ---
HPI Chief Complaint: Cardiac Complaint Time Seen by Provider: 10:18 Travel History International Travel<30 days: No Contact w/Intl Traveler<30days: No Traveled to known affect area: No History of Present Illness HPI 76-year-old female here for evaluation of lightheadedness, palpitations, and rapid heart rate. Symptoms have been going on for about 2 hours. Chart review shows that she has history of SVT. She reports a discomfort in her upper back. No chest pain. No dyspnea. No fevers or recent illness. No history of DVT or PE. She is followed by diamond sizer Dr. Fernandez. [facility] Past Medical History Blood Disorders: No Cancer: No Cardiovascular Problems: Yes Chemotherapy: No Diminished Hearing: No Endocrine: Yes Genitourinary: No Immune Disorder: No Musculoskeletal: No Neurologic: No Psychiatric: No Respiratory: No Immunizations Current: Yes Radiation Therapy: No Thyroid Disease: Yes (HYPOTHYROID) Menopausal: Yes Past Surgical History Abdominal Surgery: Yes (gallbladder) Appendectomy: Yes Cholecystectomy: Yes Hysterectomy: Yes Other Surgery: Yes Social History Alcohol Use: Yes (1/YEAR) Tobacco Use: No Substance Use: No Allergies-Medications (Allergen,Severity, Reaction): Coded Allergies: No Known Allergies (Unverified Adverse Reaction, Unknown, 06/27/17) Reported Meds & Prescriptions Reported Meds & Active Scripts Active Reported Biotin 5 Mg Cap 5 Mg PO Vitamin D3 (Cholecalciferol) 10,000 Unit Cap 10,000 Units PO Q7D Vitamin E 100 Unit Tab 400 Units PO DAILY Vitamin B-12 (Cyanocobalamin) 1,000 Mcg Tab 1,000 Mcg PO DAILY Vitamin C (Ascorbic Acid) 250 Mg Chew 1,000 Mg CHEW DAILY Multi Vitamin Daily (Multiple Vitamin) 1 Tab Tab Calcium 600 with Vitamin D (Calcium Carbonate-Cholecalciferol) 600-400 mg-Unit Tab 2 Tab PO DAILY Diovan (Valsartan) 80 Mg Tab 80 Mg PO DAILY Zinc (Zinc Gluconate) 50 Mg Tab 1 Tab PO DAILY Diltiazem ER 24 HR (Diltiazem HCl) 120 Mg Caper 120 Mg PO DAILY Metoprolol Tartrate 100 Mg Tab 100 Mg PO DAILY Premarin (Estrogens Conjugated) 0.3 Mg Tab 0.3 Mg PO DAILY Synthroid (Levothyroxine Sodium) 100 Mcg Tab 100 Mcg PO DAILY Aspirin 81 Mg Chew 81 Mg CHEW DAILY Review of Systems Except as stated in HPI: all other systems reviewed are Neg Physical Exam Narrative GENERAL: Well-developed, well-nourished, comfortable, no apparent distress. SKIN: Focused skin assessment warm/dry. HEAD: Atraumatic. Normocephalic. EYES: Pupils equal and round. No scleral icterus. No injection or drainage. ENT: No nasal bleeding or discharge. Mucous membranes pink and moist. NECK: Trachea midline. No JVD. CARDIOVASCULAR: R tachycardic, rate 140s, regular. RESPIRATORY: No accessory muscle use. Clear to auscultation. Breath sounds equal bilaterally. GASTROINTESTINAL: Abdomen soft, non-tender, nondistended. MUSCULOSKELETAL: No obvious deformities. No clubbing. No cyanosis. No edema. NEUROLOGICAL: Awake and alert. No obvious cranial nerve deficits. Motor grossly within normal limits. Normal speech. PSYCHIATRIC: Appropriate mood and affect; insight and judgment normal. Data Data Last Documented VS Vital Signs Date Time Temp Pulse Resp B/P (MAP) Pulse Ox O2 Delivery O2 Flow Rate FiO2 06/27/17 10:30 87 18 107/68 (81) 97 06/27/17 10:05 97.4 Orders Orders Electrocardiogram (06/27/17 10:22) Ckmb (Isoenzyme) Profile (06/27/17 10:22) Complete Blood Count With Diff (06/27/17 10:22) Comprehensive Metabolic Panel (06/27/17 10:22) Magnesium (Mg) (06/27/17 10:22) Prothrombin Time / Inr (Pt) (06/27/17 10:22) Act Partial Throm Time (Ptt) (06/27/17 10:22) Troponin I (06/27/17 10:22) Chest, Single Ap (06/27/17 10:22) Ecg Monitoring (06/27/17 10:22) Iv Access Insert/Monitor (06/27/17 10:22) Oximetry (06/27/17 10:22) Sodium Chloride 0.9% Flush (Ns Flush) (06/27/17 10:30) Sodium Chlorid 0.9% 500 Ml Inj (Ns 500 M (06/27/17 10:30) Adenosine Inj (Adenocard Inj) (06/27/17 10:30) Adenosine Inj (Adenocard Inj) (06/27/17 10:23) Electrocardiogram (06/27/17 ) Labs Laboratory Tests Test 06/27/17 10:35 White Blood Count 7.7 TH/MM3 Red Blood Count 4.49 MIL/MM3 Hemoglobin 14.9 GM/DL Hematocrit 44.4 % Mean Corpuscular Volume 99.0 FL Mean Corpuscular Hemoglobin 33.3 PG Mean Corpuscular Hemoglobin Concent 33.6 % Red Cell Distribution Width 13.6 % Platelet Count 325 TH/MM3 Mean Platelet Volume 10.5 FL Neutrophils (%) (Auto) 68.7 % Lymphocytes (%) (Auto) 20.3 % Monocytes (%) (Auto) 8.9 % Eosinophils (%) (Auto) 1.6 % Basophils (%) (Auto) 0.5 % Neutrophils # (Auto) 5.3 TH/MM3 Lymphocytes # (Auto) 1.6 TH/MM3 Monocytes # (Auto) 0.7 TH/MM3 Eosinophils # (Auto) 0.1 TH/MM3 Basophils # (Auto) 0.0 TH/MM3 CBC Comment DIFF FINAL Differential Comment Prothrombin Time 10.1 SEC Prothromb Time International Ratio 1.0 RATIO Activated Partial Thromboplast Time 28.0 SEC Blood Urea Nitrogen 15 MG/DL Creatinine 1.06 MG/DL Random Glucose 104 MG/DL Total Protein 7.5 GM/DL Albumin 3.6 GM/DL Calcium Level 8.8 MG/DL Magnesium Level 1.8 MG/DL Alkaline Phosphatase 72 U/L Aspartate Amino Transf (AST/SGOT) 17 U/L Alanine Aminotransferase (ALT/SGPT) 17 U/L Total Bilirubin 0.7 MG/DL Sodium Level 141 MEQ/L Potassium Level 3.7 MEQ/L Chloride Level 108 MEQ/L Carbon Dioxide Level 24.0 MEQ/L Anion Gap 9 MEQ/L Estimat Glomerular Filtration Rate 50 ML/MIN Total Creatine Kinase 60 U/L Troponin I LESS THAN 0.02 NG/ML MDM Medical Decision Making Medical Screen Exam Complete: Yes Emergency Medical Condition: Yes Differential Diagnosis SVT, ACS, PE, sepsis Narrative Course Patient arrived with a heart rate of 144. EKG shows SVT. She is normotensive. She was given 6 mg of adenosine with conversion to sinus with a rate in the 90s. Initial EKG showed signs of ischemia which were more likely rate related with ST depressions in the precordial, lateral, and inferior leads. Upon conversion to sinus rhythm the patient had no signs of ischemia. Vital signs reviewed. CBC is unremarkable. CMP is unremarkable. Cardiac enzymes are negative. Chest x-ray read as the lungs are clear. Patient remained on potline monitor for about 2 hours and remained in sinus rhythm. She states she feels well and would like to go home. She has an appointment with her diamond sizer Dr. Fernandez this week. I believe she is stable for discharge home with outpatient follow-up with him. She was advised on when to return to the emergency department. She verbalizes understanding and agreement with plan. Critical Care Narrative Aggregate critical care time was 35 minutes. Time to perform other separately billable procedures was not included in the critical care time. My time did not include minutes spent treating any other patients simultaneously or on activities that did not directly contribute to the patient's treatment. The services I provided to this patient were to treat and/or prevent clinically significant deterioration that could result in: , permanent disability, worsening clinical condition, cardiogenic shock I provided critical care services requiring my management, as noted below: Chart data review, documentation time, medication orders and management, vital sign assessments/reviewing monitor data, ordering and reviewing lab tests, ordering and interpreting/reviewing x-rays and diagnostic studies, care of the patient and discussion of the patient with the admitting physicians. Diagnosis Primary Impression: SVT (supraventricular tachycardia) Referrals: Kavin Fernandez MD 3 days Additional Instructions: Follow-up with your diamond sizer this week as scheduled. Return to the emergency department for worsening symptoms or any other concerns. Disposition: 01 DISCHARGE HOME Condition: Stable Edgar Watson MD Jun 27, 2017 10:31
[2017-06-27] MEDS ORDERED: VITA250C3 CHEW (10:45)
[2017-06-27] MEDS ORDERED: VITA100T65 PO (10:45)
[2017-06-27] MEDS ORDERED: VITA10002 PO (10:45)
[2017-06-27] MEDS ORDERED: CALC1TAB87 PO (10:45)
[2017-06-27] MEDS ORDERED: CHOL1CAP24 PO (10:45)
[2017-06-27] MEDS ORDERED: DIOV80TA4 PO (10:45)
[2017-06-27] MEDS ORDERED: MULT1TAB46 (10:45)
[2017-06-27] MEDS ORDERED: BIOTCAP PO (10:45)
[2017-06-27 11:34] LABS: AUTOMATED NEUTROPHIL # 5.3 TH/MM3 (1.8-7.7); BASOPHIL % 0.5 % (0.0-2.0); EOSINOPHIL # 0.1 TH/MM3 (0-0.4); EOSINOPHIL % 1.6 % (0.0-4.0); HEMATOCRIT 44.4 % (35.0-46.0); HEMOGLOBIN 14.9 GM/DL (11.6-15.3); LYMPH % 20.3 % (9.0-44.0); LYMPHOCYTE # 1.6 TH/MM3 (1.0-4.8); MEAN CORPUSCULAR HEMOGLOBIN 33.3 PG (27.0-34.0); MEAN CORPUSCULAR HGB CONC 33.6 % (32.0-36.0); MEAN PLATELET VOLUME 10.5 FL (7.0-11.0); MONO % 8.9 % (0.0-8.0); MONOCYTE # 0.7 TH/MM3 (0-0.9); NEUT % 68.7 % (16.0-70.0); PLATELET COUNT 325 TH/MM3 (150-450); RED BLOOD COUNT 4.49 MIL/MM3 (4.00-5.30); RED CELL DISTRIBUTION WIDTH 13.6 % (11.6-17.2); WHITE BLOOD COUNT 7.7 TH/MM3 (4.0-11.0)
--- NOTE | 2017-06-27 11:40 | RADRPT ---
EXAM DATE/TIME: 06/27/2017 10:27 [facility] COMPARISON: CHEST SINGLE AP, May 26, 2016, 7:41. INDICATIONS : Chest pain. MEDICAL HISTORY : None. SURGICAL HISTORY : None. ENCOUNTER: Initial ACUITY: 1 day PAIN SCORE: 4/10 LOCATION: Bilateral chest FINDINGS: A single view of the chest demonstrates the lungs to be symmetrically aerated without evidence of mas s, infiltrate or effusion. Previously noted opacity adjacent to the lateral left hemidiaphragm has r esolved. The cardiomediastinal contours are unremarkable. Osseous structures are intact. CONCLUSION: The lungs are clear. Gatito Martins MD on June 27, 2017 at 11:37 Board Certified Radiologist. This report was verified electronically.
[2017-06-27 11:50] LABS: PROTHROMBIN TIME - PATIENT 10.1 SEC (9.8-11.6)
[2017-06-27 11:55] LABS: ALBUMIN 3.6 GM/DL (3.4-5.0); ALT (GPT) 17 U/L (10-53); AST (GOT) 17 U/L (15-37); BLOOD UREA NITROGEN 15 MG/DL (7-18); CALCIUM 8.8 MG/DL (8.5-10.1); CREATININE 1.06 MG/DL (0.50-1.00); GLOMERULAR FILTRATION RATE 50 ML/MIN (>89); GLUCOSE,RANDOM 104 MG/DL (74-106); MAGNESIUM 1.8 MG/DL (1.5-2.5)
[2017-06-27 11:56] LABS: CHLORIDE 108 MEQ/L (98-107); SODIUM (NA) 141 MEQ/L (136-145)
[2017-06-27 11:59] LABS: ALKALINE PHOSPHATASE 72 U/L (45-117); TOTAL BILIRUBIN ADULT 0.7 MG/DL (0.2-1.0); TOTAL PROTEIN 7.5 GM/DL (6.4-8.2); TROPONIN I LESS THAN 0.02 NG/ML (0.02-0.05)
--- NOTE | 2017-06-28 15:43 | EKG ---
Date Performed: 06/27/2017 Time Performed: 10:29:57 PTAGE: 76 years EKG: Sinus rhythm NORMAL ECG PREVIOUS TRACING : 05/26/2016 07.31 Compared to previous tracing, rate has slowed with improvem ent in the ST segments. DOCTOR: Juan Pablo Izaguirre Interpretating Date/Time 06/28/2017 15:42:58
--- NOTE | 2017-06-28 16:48 | EKG ---
Date Performed: 06/27/2017 Time Performed: 10:25:03 PTAGE: 76 years EKG: SUPRAVENTRICULAR TACHYCARDIA MODERATE ST DEPRESSION Since previous tracing, no significant change noted ABNORMAL ECG PREVIOUS TRACING : 05/26/2016 07.31 DOCTOR: Juan Pablo Izaguirre Interpretating Date/Time 06/28/2017 16:45:00
== END 2017-06-27 13:01 | disposition home or self-care (01) ==
LOC: NEPE 10:03
DX: I47.1 Supraventricular tachycardia (principal); E03.9 Hypothyroidism, unspecified
CPT/HCPCS: 71045; 80053; 82550; 83735; 84484; 85025; 85610; 85730; 93005; 96361; 96374; 99291; J0153; J7040